=== PATIENT | male | born 1960 ===

== ENCOUNTER 2018-03-24 09:52 | Day surgery (SDC) | payer MEDICAID ==
[2018-03-24] MEDS ORDERED: Lactated Ringer's 500 ML IV ONE (10:11)
[2018-03-24] MEDS ORDERED: Propofol 10 mg/ml Inj (20 ML) ONE (11:39)
[2018-03-24 12:13] VITALS: TEMP 97
[2018-03-24 12:28] VITALS: BP 124/79; PULSE 70; RESP 16; O2SAT 98
== END 2018-03-24 12:40 | disposition home or self-care (01) ==
LOC: H.ENDO 09:52
PROVIDERS: ATTEND Internal Medicine Gastroenterology
DX: K64.8 Other hemorrhoids (principal); K62.5 Hemorrhage of anus and rectum; K57.30 Diverticulosis of large intestine without perforation or abscess without bleeding; R10.32 Left lower quadrant pain; G47.30 Sleep apnea, unspecified; M10.9 Gout, unspecified; E78.5 Hyperlipidemia, unspecified; I10 Essential (primary) hypertension
CPT/HCPCS: 45378; 88305; J2704; J7120

== ENCOUNTER 2018-09-19 11:04 | Emergency (ER) | payer MEDICAID ==
[2018-09-19 11:10] VITALS: BMI 38.2
[2018-09-19 11:39] VITALS: RESP 18
--- NOTE | 2018-09-19 12:31 | ED PDOC ---
Lower Extremity Pain/Injury Time Seen by Provider: 09/19/18 12:03 Chief Complaint (Nursing): Lower Extremity Problem/Injury Chief Complaint (Provider): Left Knee Pain History Per: Patient History/Exam Limitations: no limitations Onset/Duration Of Symptoms: Days Current Symptoms Are (Timing): Still Present Additional History Per: Family Additional Complaint(s): 58 year old male with PMHx of gout presents to the ER for an evaluation of ongoing left knee pain onset for 3 months. Patient was seen by his primary care, Dr. Damon. He was started on Colchicine. Patient also reports he urinates frequently during the night. He denies falls, fever or chills. PMD: Dr. Damon Past Medical History Reviewed: Historical Data, Nursing Documentation, Vital Signs Vital Signs: Last Vital Signs Temp 98.3 F 09/19/18 11:10 Pulse 80 09/19/18 11:47 Resp 18 09/19/18 11:47 BP 153/65 H 09/19/18 11:47 Pulse Ox 99 09/19/18 11:47 - Medical History PMH: HTN, Hypercholesterolemia Denies: Chronic Kidney Disease - Family History Family History: States: Unknown Family Hx - Social History Current smoker - smoking cessation education provided: No Alcohol: None Drugs: Denies - Immunization History Hx Tetanus Toxoid Vaccination: Yes Hx Influenza Vaccination: Yes Hx Pneumococcal Vaccination: Yes - Home Medications Home Medications: Ambulatory Orders Medication Instructions Recorded Colchicine 0.6 mg PO DAILY 05/02/17 Febuxostat [Uloric] 80 mg PO DAILY 05/02/17 Aspirin 81 mg PO DAILY 02/22/18 Valsartan [Diovan] 160 mg PO DAILY 03/24/18 predniSONE [predniSONE Tab] 2 tab PO DAILY #10 tab 09/19/18 - Allergies Allergies/Adverse Reactions: Allergies Allergy/AdvReac Type Severity Reaction Status Date / Time No Known Allergies Allergy Verified 05/02/17 13:42 Review of Systems ROS Statement: Except As Marked, All Systems Reviewed And Found Negative Constitutional: Negative for: Fever, Chills Genitourinary Male: Positive for: Frequency Musculoskeletal: Positive for: Other (left knee pain) Physical Exam - Reviewed Nursing Documentation Reviewed: Yes Vital Signs Reviewed: Yes - Physical Exam Appears: Positive for: Non-toxic, No Acute Distress Head Exam: Positive for: ATRAUMATIC, NORMAL INSPECTION, NORMOCEPHALIC Skin: Positive for: Normal Color, Warm, Dry. Negative for: Rash Extremity: Positive for: Normal ROM, Tenderness (difficulty bending knee ), Swelling (mild effusion left knee). Negative for: Deformity, Other (erythema) Neurologic/Psych: Positive for: Alert, Oriented (x3). Negative for: Motor/Sensory Deficits - ECG O2 Sat by Pulse Oximetry: 99 (RA) Pulse Ox Interpretation: Normal - Progress ED Course And Treament: Xry of knee: moderate arthritic changes noted. hardware in femur intact Accucheck 87 Medical Decision Making Medical Decision Making: Time: 1208 Initial Plan: Knee 3 Views LT [RAD] Accucheck Upon review of older chart, patient had creatinine of 2.8 in February Scribe Attestation: Documented by Mook Love, acting as a scribe for Antonio Crawford PA-C Provider Scribe Attestation: All medical record entries made by the Scribe were at my direction and personally dictated by me. I have reviewed the chart and agree that the record accurately reflects my personal performance of the history, physical exam, me dical decision making, and the department course for this patient. I have also personally directed, reviewed, and agree with the discharge instructions and disposition. Disposition - Clinical Impression Clinical Impression: Knee pain, chronic, Knee pain, left - Patient ED Disposition Is Patient to be Admitted: No - Disposition Referrals: Gab Zhang III, MD [Staff Provider] - Disposition: Routine/Home Disposition Time: 12:55 Condition: FAIR Prescriptions: predniSONE [predniSONE Tab] 2 tab PO DAILY #10 tab Instructions: Knee Pain Forms: [facility] (Guinean) Print Language: MALAY
[2018-09-19 13:40] VITALS: BP 154/83; PULSE 76; TEMP 98.5; O2SAT 96
--- NOTE | 2018-09-19 14:32 | RAD ---
Date of service: 09/19/2018 PROCEDURE: Left Knee Radiographs. HISTORY: Pain. COMPARISON: None. FINDINGS: BONES: No acute fracture or destructive bony lesion identified. JOINTS: Late stage osteoarthritis identified manifest by nearly no residual joint space remaining at the medial femoral compartment with nearly similarly diminished joint space at the lateral femorotibial compartment. Patellofemoral articulation exhibits moderate loss of disc space but extensive osteophyte development and moderate articular cortical sclerosis. Osteophyte development at the medial and lateral femorotibial compartments is marked with moderate articular cortical sclerosis present. Intramedullary nail identified at the femur as imaged. JOINT EFFUSION: Minimal suprapatellar bursa effusion suggested. OTHER FINDINGS: None. IMPRESSION: Gross osteoarthritis, tricompartmental but primarily at the medial and lateral femorotibial compartments. No acute fracture dislocation left knee. Distal segment of intramedullary nail identified the distal left femur.
== END 2018-09-19 13:40 | disposition home or self-care (01) ==
LOC: H.ER 11:04
DX: G89.29 Other chronic pain (principal); I10 Essential (primary) hypertension; Z79.82 Long term (current) use of aspirin; E78.00 Pure hypercholesterolemia, unspecified